=== PATIENT | female | born 1940 | race Caucasian/White ===

== ENCOUNTER → 2016-09-13 | Outpatient (CLI) | payer MEDICARE, OTHER ==
[2016-01-12 14:36] VITALS: BP 118/70
[~2016-09-13] MED LIST: ACET500T33 PO; ALBU0.63 NEB; ALPH600C3 PO; ATEN25TA PO; CHOL4000 PO; GUAI600T47 PO; HYDR2TAB31 PO; LEVO25TA4 PO; LEVO75TA5 PO; MAGN400O7 PO; MELO15TA6 PO; OMEP20CA9 PO; ONDA4TAB7 PO; OXYC-323 PO; OXYC1TAB9 PO; PROM25AM6 IM; SIME125C65 PO; TRIA1CAP PO
[2016-09-13 12:40] LABS: BASO # 0.1 x10^3/uL (0.0-0.2); BASO % 1 % (0-3); EOS % 8 % (0-3); HEMATOCRIT 28.9 % (36.0-47.0); HEMOGLOBIN 9.4 g/dL (12.0-15.5); LYMPH # 2.2 x10^3/uL (1.0-4.8); LYMPH % 17 % (24-48); MEAN CORPUSCULAR HEMOGLOBIN 29 pg (25-35); MEAN CORPUSCULAR HGB CONC 33 g/dL (31-37); MEAN CORPUSCULAR VOLUME 89 fL (79-100); MONO # 1.2 x10^3/uL (0.0-1.1); MONO % 10 % (0-9); NEUT # 7.9 x10^3uL (1.8-7.7); NEUT % 64 % (31-73); PLATELET COUNT 604 x10^3/uL (140-400); RED BLOOD COUNT 3.26 x10^6/uL (3.50-5.40); RED CELL DISTRIBUTION WIDTH 13.8 % (11.5-14.5); WHITE BLOOD COUNT 12.4 x10^3/uL (4.0-11.0)
[2016-09-13 12:47] LABS: ALBUMIN 3.1 g/dL (3.4-5.0); ALBUMIN/GLOBULIN RATIO 0.9 (1.0-1.7); CALCIUM 8.9 mg/dL (8.5-10.1); GFR 53.8; POTASSIUM 5.1 mmol/L (3.5-5.1); TOTAL BILIRUBIN 0.2 mg/dL (0.2-1.0); TOTAL PROTEIN 6.5 g/dL (6.4-8.2)
== END | disposition home or self-care (01) ==
LOC: SPEC 12:15
PROVIDERS: ATTEND Internal Medicine
DX: I10 Essential (primary) hypertension (principal); E03.9 Hypothyroidism, unspecified; D51.9 Vitamin B12 deficiency anemia, unspecified; E55.9 Vitamin D deficiency, unspecified
CPT/HCPCS: 36415; 80053; 82306; 82607; 84443; 85027

== ENCOUNTER → 2016-10-20 | Outpatient (CLI) | payer MEDICARE, OTHER ==
[2016-01-12 14:36] VITALS: BP 118/70
[~2016-10-20] MED LIST changes: -ALPH600C3 PO; +ASCO500T3 PO; +ASPI-630 PO; +CYAN10002 IM; +DICL75TA PO; +DOCU-109 PO; +FERR-26 PO; +HYDR-971 PO; +LEXAPRO5 MG PO; +MISO200T PO; +POLY17PO5 PO; +SUCR1TAB35 PO; +[UNRECOGNIZED DRUG - CODE] PO
[2016-10-20 12:31] LABS: ALBUMIN 2.7 g/dL (3.4-5.0); ALBUMIN/GLOBULIN RATIO 0.8 (1.0-1.7); CALCIUM 8.6 mg/dL (8.5-10.1); CREATININE 0.9 mg/dL (0.6-1.0); GFR 60.7; POTASSIUM 3.6 mmol/L (3.5-5.1); TOTAL BILIRUBIN 0.2 mg/dL (0.2-1.0); TOTAL PROTEIN 6.3 g/dL (6.4-8.2)
[2016-10-20 14:34] LABS: BASO # 0.1 x10^3/uL (0.0-0.2); BASO % 1 % (0-3); EOS # 0.6 x10^3/uL (0.0-0.7); EOS % 5 % (0-3); HEMATOCRIT 24.3 % (36.0-47.0); HEMOGLOBIN 7.7 g/dL (12.0-15.5); LYMPH # 2.4 x10^3/uL (1.0-4.8); LYMPH % 20 % (24-48); MEAN CORPUSCULAR HEMOGLOBIN 27 pg (25-35); MEAN CORPUSCULAR HGB CONC 32 g/dL (31-37); MEAN CORPUSCULAR VOLUME 84 fL (79-100); MONO % 9 % (0-9); NEUT # 7.6 x10^3uL (1.8-7.7); NEUT % 65 % (31-73); PLATELET COUNT 659 x10^3/uL (140-400); RED BLOOD COUNT 2.89 x10^6/uL (3.50-5.40); RED CELL DISTRIBUTION WIDTH 14.2 % (11.5-14.5); WHITE BLOOD COUNT 11.8 x10^3/uL (4.0-11.0)
== END | disposition home or self-care (01) ==
LOC: LAB 11:43
PROVIDERS: ATTEND Internal Medicine
DX: I10 Essential (primary) hypertension (principal); D51.9 Vitamin B12 deficiency anemia, unspecified
CPT/HCPCS: 36415; 80053; 82607; 82746; 85025

== ENCOUNTER → 2016-10-23 | Outpatient (CLI) | payer MEDICARE, OTHER ==
[2016-01-12 14:36] VITALS: BP 118/70
[~2016-10-23] MED LIST changes: -ASCO500T3 PO; -FERR-26 PO
== END | disposition home or self-care (01) ==
LOC: SPEC 13:58
PROVIDERS: ATTEND Internal Medicine
DX: K29.60 Other gastritis without bleeding (principal)
CPT/HCPCS: 82728; 83540; 83550

== ENCOUNTER 2016-10-24 09:38 | Inpatient (IN) | payer MEDICARE, OTHER ==
[~2016-10-24] VITALS: Ht 170.2 cm; Wt 79.8 kg
[~2016-10-24 09:38] MED LIST changes: -ASPI-630 PO; -CYAN10002 IM; -DICL75TA PO; -DOCU-109 PO; -HYDR-971 PO; -LEXAPRO5 MG PO; -MISO200T PO; -POLY17PO5 PO; -SUCR1TAB35 PO
[2016-10-24 10:59] LABS: HEMATOCRIT 23.6 % (36.0-47.0); HEMOGLOBIN 7.4 g/dL (12.0-15.5); RED BLOOD COUNT 2.83 x10^6/uL (3.50-5.40); RED CELL DISTRIBUTION WIDTH 14.1 % (11.5-14.5); WHITE BLOOD COUNT 10.9 x10^3/uL (4.0-11.0)
--- NOTE | 2016-10-24 11:02 | EKG ---
[address] [address] Test Date: 2016-10-24 Test Time: 10:31:09 Pat Name: MICHELLE RESENDIZ Department: Room: Gender: F Investigative Research Specialist: JUAN A : 1940 Requested By: TAYLOR NOYOLA Order Number: [id number] Reading MD: Kendrick Bolden Measurements Intervals [place] Rate: 67 P: 51 WA: 118 QRS: 49 QRSD: 84 T: -51 QT: 408 QTc: 434 Interpretive Statements SINUS RHYTHM NON-SPECIFIC ST/T CHANGES Electronically Signed On 10-26-2016 11:12:26 CDT by Kendrick Bolden
[2016-10-24 11:04] LABS: CALCIUM 8.7 mg/dL (8.5-10.1); CREATININE 0.8 mg/dL (0.6-1.0); GFR 69.6; POTASSIUM 4.3 mmol/L (3.5-5.1)
--- NOTE | 2016-10-24 12:13 | PHYS DOC ---
Past History Past Medical History: Constipation, CVA, Dementia, Depression, Fibromyalgia, GERD, Hypertension, Hypothyroid, Other Past Surgical History: Appendectomy, Tonsillectomy, Other Alcohol Use: None Drug Use: None Adult General Chief Complaint Chief Complaint: ABNORMAL LABS HPI HPI Patient is a 76 year old F who presents with presyncope and low hemoglobin. She also notes having black stools over the past days to weeks. Her history is limited by mild dementia. She does not have any other associated symptoms at this time. Review of Systems Review of Systems Constitutional: Denies fever or chills [] Eyes: Denies change in visual acuity, redness, or eye pain [] HENT: Denies nasal congestion or sore throat [] Respiratory: Denies cough or shortness of breath [] Cardiovascular: No additional information not addressed in HPI [] GI: Negative except history of present illness : Denies dysuria or hematuria [] Musculoskeletal: Denies back pain or joint pain [] Integument: Denies rash or skin lesions [] Neurologic: Denies headache, focal weakness or sensory changes [] Endocrine: Denies polyuria or polydipsia [] Family History Family History Noncontributory Current Medications Current Medications Medications reviewed Allergies Allergies Allergies Coded Allergies Type Severity Reaction Last Updated Verified Sulfa (Sulfonamide Antibiotics) Allergy Intermediate Nausea 08/25/15 Yes Physical Exam Physical Exam Constitutional: Well developed, well nourished, no acute distress, non-toxic appearance. [] Pale in appearance HENT: Normocephalic, atraumatic, bilateral external ears normal, oropharynx dry, no oral exudates, nose normal. [] Eyes: PERRLA, EOMI, conjunctiva normal, no discharge. [] Neck: Normal range of motion, no tenderness, supple, no stridor. [] Cardiovascular:Heart rate regular rhythm, no murmur [] Lungs & Thorax: Bilateral breath sounds clear to auscultation [] Abdomen: Bowel sounds normal, soft, no tenderness, no masses, no pulsatile masses. [] Skin: Warm, dry, no erythema, no rash. [] Back: No tenderness, no CVA tenderness. [] Extremities: No tenderness, no cyanosis, no clubbing, ROM intact, no edema. [] Neurologic: Alert, normal motor function, normal sensory function, no focal deficits noted. [] Psychologic: Affect normal, judgement normal, mood normal. [] Current Patient Data Vital Signs Vital Signs Date Time Temp Pulse Resp B/P (MAP) Pulse Ox O2 Delivery O2 Flow Rate FiO2 10/24/16 09:40 98.4 55 18 99 Room Air Lab Results Laboratory Tests Test 10/24/16 10:45 White Blood Count 10.9 x10^3/uL (4.0-11.0) Red Blood Count 2.83 x10^6/uL (3.50-5.40) L Hemoglobin 7.4 g/dL (12.0-15.5) L Hematocrit 23.6 % (36.0-47.0) L Mean Corpuscular Volume 83 fL (79-100) Mean Corpuscular Hemoglobin 26 pg (25-35) Mean Corpuscular Hemoglobin Concent 32 g/dL (31-37) Red Cell Distribution Width 14.1 % (11.5-14.5) Platelet Count 595 x10^3/uL (140-400) H Sodium Level 133 mmol/L (136-145) L Potassium Level 4.3 mmol/L (3.5-5.1) Chloride Level 100 mmol/L (98-107) Carbon Dioxide Level 27 mmol/L (21-32) Anion Gap 6 (6-14) Blood Urea Nitrogen 18 mg/dL (7-20) Creatinine 0.8 mg/dL (0.6-1.0) Estimated GFR (Cockcroft-Gault) 69.6 Glucose Level 107 mg/dL (70-99) H Calcium Level 8.7 mg/dL (8.5-10.1) EKG EKG Normal sinus rhythm Course & Med Decision Making Course & Med Decision Making Pertinent Labs and Imaging studies reviewed. (See chart for details) Dr. Lau, her primary care physician, was contacted by phone. Given her reported active lower GI bleed and hemoglobin trending downwards she was admitted for further management Dragon Disclaimer Dragon Disclaimer This chart was dictated in whole or in part using Voice Recognition software in a busy, high-work load, and often noisy Emergency Department environment. It may contain unintended and wholly unrecognized errors or omissions. Departure Departure: Impression: Primary Impression: Lower GI bleed Additional Impression: Acute blood loss anemia Disposition: ADMITTED INPATIENT Condition: STABLE Referrals: YOLA LAU MD (PCP) Problem Qualifiers TAYLOR NOYOLA MD Oct 24, 2016 12:13
[2016-10-24] MEDS: IV NORMAL SALINE 1,000ML 1,000 ML IV SCH ×2 (13:57→17:49)
[2016-10-24 14:18] VITALS: BP 136/58
[2016-10-24 14:30] VITALS: BP 136/58
[2016-10-24] MEDS ORDERED: MAGNESIUM HYDROXIDE 2,400 MG/30 ML ORAL.SUSP. PO PRN (15:00)
[2016-10-24] MEDS ORDERED: SIMETHICONE 80 MG TAB.CHEW PO PRN (15:00)
[2016-10-24] MEDS ORDERED: ACETAMINOPHEN 500 MG TABLET PO PRN (15:00)
[2016-10-24] MEDS ORDERED: HYDROmorphone 2 MG TABLET PO PRN (15:00)
[2016-10-24] MEDS ORDERED: PROMETHAZINE IM 25 MG/ML VIAL IM PRN (15:00)
[2016-10-24] MEDS ORDERED: ALBUTEROL SULFATE 2.5 MG/3 ML NEBU. NEB PRN (15:00)
[2016-10-24] MEDS ORDERED: ONDANSETRON ODT 4 MG TAB.RAPDIS PO PRN (15:00)
--- NOTE | 2016-10-24 16:16 | HP ---
ADMIT DATE: 10/24/2016 HISTORY OF PRESENT ILLNESS: The patient is a 76-year-old sister who resides at [facility] and who apparently presented to the Emergency Room with presyncope and low hemoglobin. She also noted that she had black stools over the last days to weeks. Her hemoglobin was checked by her primary care physician and was found to be low; and therefore, she was referred to the Emergency Room for further evaluation and treatment. When I asked her, the patient actually denied any nausea, vomiting. Denied any abdominal pain, denied any melena stool. However, she carries a diagnosis of dementia. She reported at least melena stool to the ER physician. PAST MEDICAL HISTORY: Significant for hypertension, hypothyroidism, reflux esophagitis, vitamin D deficiency. She has also chronic nausea, fibromyalgia and history of traumatic brain injury. She was apparently thrown from a horse in high school, but did go on to go to the college. PAST SURGICAL HISTORY: Unremarkable. FAMILY HISTORY: She has 4 sisters and one brother, one sister had of myocardial infarction. Both parents in their 80s of heart disease. 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 She lives at [facility]. She does not smoke, drink alcohol or use any recreational drugs. ALLERGIES: She is allergic to SULFA DRUGS. MEDICATIONS: She is currently on following medications: She is on acetaminophen 1000 mg every 8 hours, albuterol sulfate by nebulizer q.i.d. She is on fbsen-m-yijwyrmvmnkio 600 units capsule 150 units t.i.d. with meals, atenolol 25 mg daily, cholecalciferol 4000 international units once a day, Mucinex 600 mg twice a day, hydromorphone 2 mg every 6 hours, levothyroxine sodium 75 mcg once a day, magnesium hydroxide or Milk of Magnesia 30 mL p.o. daily p.r.n. for constipation, Mobic 15 mg daily, omeprazole 40 mg daily, ondansetron 4 mg every 6 hours for nausea and vomiting, promethazine 25 mg/mL intramuscularly every 6 hours, simethicone 125 mg daily, triamterene/hydrochlorothiazide 37.5/25 mg one tablet once a day. REVIEW OF SYSTEMS: As per history of present illness. PHYSICAL EXAMINATION GENERAL: When I examined her, she looked well and was clearly in no apparent respiratory distress, was pale, but no jaundice, cyanosis, or thyromegaly. No jugular venous distention. No limb edema. VITAL SIGNS: Her heart rate was 55, blood pressure 134/70, temperature was 98.4, respiratory rate was 18 and oxygen saturation was 99%. HEAD, EYES, EARS, NOSE and THROAT: Showed normocephalic, atraumatic. NECK: Supple. HEART: Showed normal first and second heart sounds with no gallop, rub or murmur. CHEST: Clear to auscultation. No crepitation or rhonchi. ABDOMEN: Distended, soft, nontender. No guarding or rigidity. No organomegaly. Hernial orifices intact. Bowel sounds normal. NEUROLOGIC: She is awake, alert, responding appropriately. Her cranial nerves intact. EXTREMITIES: She moves extremities without difficulty. She ambulates with a walker. LABORATORY DATA: Showed a white cell count 10,900, hemoglobin 7.4, hematocrit 23.6, MCV 83, and platelet count 595,000. Serum sodium 133, potassium 4.3, chloride 100, bicarbonate 27, anion gap of 6, BUN 18, creatinine 0.8, estimated GFR was 70 mL per minute. Her glucose was 107, calcium was 8.7. ASSESSMENT AND PLAN: This is a 76-year-old female patient who was admitted with anemia with low hemoglobin that has been trending down. She also reported having black stools over the past days to weeks. She is also on Meloxicam which obviously can cause gastric irritation and gastric ulcer. My plan is to discontinue the meloxicam. We will start her on Protonix 40 mg twice a day. Continue with IV fluid. We will check her stool for occult blood and check her H and H for every 6 hours. We will transfuse if the hemoglobin drops below 7. She will be started on a clear liquid diet and we will decide on further management accordingly. PERRY BECKER MD DR: AUDRA/jessie JOB#: [id number] / [id number]
[2016-10-24] MEDS ORDERED: ASPI-630 PO (16:34)
[2016-10-24] MEDS ORDERED: LEXAPRO5 MG PO (16:34)
[2016-10-24] MEDS ORDERED: SUCR1TAB35 PO (16:34)
[2016-10-24] MEDS ORDERED: DOCU-109 PO (16:34)
[2016-10-24] MEDS ORDERED: POLY17PO5 PO (16:34)
[2016-10-24] MEDS ORDERED: CYAN10002 IM (16:34)
[2016-10-24] MEDS ORDERED: MISO200T PO (16:34)
[2016-10-24] MEDS ORDERED: HYDR-971 PO (16:34)
[2016-10-24] MEDS ORDERED: DICL75TA PO (16:34)
[2016-10-24 18:12] VITALS: BP 163/52
[2016-10-24] MEDS: PANTOPRAZOLE 40 MG TABLET. PO SCH ×2 (19:57→21:07)
[2016-10-25] VITALS (8 sets, daily range): BP systolic 115–149; BP diastolic 47–88
[2016-10-25] MEDS ORDERED: IV NORMAL SALINE 250ML 250 ML ONE (02:29)
[2016-10-25] MEDS: LEVOTHYROXINE 75 MCG TABLET PO SCH (05:52)
[2016-10-25 07:15] LABS: BASO # 0.1 x10^3/uL (0.0-0.2); BASO % 1 % (0-3); EOS # 0.5 x10^3/uL (0.0-0.7); EOS % 6 % (0-3); HEMOGLOBIN 8.7 g/dL (12.0-15.5); LYMPH # 1.7 x10^3/uL (1.0-4.8); LYMPH % 22 % (24-48); MEAN CORPUSCULAR HEMOGLOBIN 27 pg (25-35); MEAN CORPUSCULAR HGB CONC 33 g/dL (31-37); MEAN CORPUSCULAR VOLUME 81 fL (79-100); MONO # 0.8 x10^3/uL (0.0-1.1); MONO % 10 % (0-9); NEUT # 4.8 x10^3uL (1.8-7.7); NEUT % 61 % (31-73); PLATELET COUNT 541 x10^3/uL (140-400); RED BLOOD COUNT 3.22 x10^6/uL (3.50-5.40); RED CELL DISTRIBUTION WIDTH 14.4 % (11.5-14.5); WHITE BLOOD COUNT 7.9 x10^3/uL (4.0-11.0)
[2016-10-25 07:18] LABS: ALBUMIN 2.5 g/dL (3.4-5.0); ALBUMIN/GLOBULIN RATIO 0.8 (1.0-1.7); CALCIUM 8.7 mg/dL (8.5-10.1); CREATININE 0.7 mg/dL (0.6-1.0); GFR 81.1; TOTAL BILIRUBIN 0.2 mg/dL (0.2-1.0); TOTAL PROTEIN 5.8 g/dL (6.4-8.2)
[2016-10-25] MEDS ORDERED: PANTOPRAZOLE 20 MG TABLET. PO SCH (07:30)
[2016-10-25] MEDS: TRIAMTERENE/HCTZ 37.5/25MG TABLET. PO SCH (08:30)
[2016-10-25] MEDS: PANTOPRAZOLE 40 MG TABLET. PO SCH ×2 (08:30→19:47)
[2016-10-25] MEDS: CHOLECALCIFEROL (VITAMIN D3) 1,000 UNIT TABLET PO SCH (08:31)
[2016-10-25] MEDS: ATENOLOL 25 MG TABLET PO SCH (08:31)
[2016-10-25] MEDS ORDERED: hydroCHLOROthiazide 25 MG TABLET PO SCH (09:00)
[2016-10-25] MEDS ORDERED: PANTOPRAZOLE 40 MG TABLET. PO SCH (09:00)
[2016-10-25] MEDS ORDERED: ALPRAZolam 0.25 MG TABLET PO PRN (15:30)
--- NOTE | 2016-10-26 03:01 | PN ---
DATE: 10/25/2016 SUBJECTIVE: The patient is sitting comfortably in her chair in no apparent distress. On questioning her, denied any complaint, in particular denied any nausea, vomiting. Denied any abdominal pain, denied any dizziness, lightheadedness that she dropped her hemoglobin down to 7 and did receive 1 unit of packed RBCs and her most recent H and H was 8.7 and 26. She has not had any bowel movement so far, we have not been able to check her stool for occult blood. PHYSICAL EXAMINATION: GENERAL: When I examined her this afternoon, she was pale, not jaundiced, cyanosis, or thyromegaly. No jugular venous distention. No limb edema. VITAL SIGNS: Her heart rate was 64, blood pressure was 115/53, temperature was 98.6, respiratory rate 20, and oxygen saturation was 97%. HEAD, EYES, EARS, NOSE AND THROAT: Showed normocephalic, atraumatic. NECK: Supple. HEART: Showed normal first and second heart sounds with no gallop, rub or murmur. CHEST: Clear to auscultation. No crepitation or rhonchi. ABDOMEN: Distended, soft, nontender. No guarding or rigidity. No organomegaly. Hernial orifices intact. Bowel sounds normal. NEUROLOGIC: She is demented; however, all her cranial nerves are intact. She moves extremities without difficulty. Her intake over the last 24 hours was 1200, no output was recorded. LABORATORY DATA: Her lab work this morning showed a white cell count 7900, hemoglobin 8.7, hematocrit 26, MCV 81, platelet count 541,000. Her chemistry showed a serum sodium 137, potassium 4, chloride 104, bicarbonate 26, anion gap of 7, BUN 8, creatinine 0.7, estimated GFR was 81 mL per minute. Her glucose was 96, calcium was 8.7. Total bilirubin, AST, ALT, alkaline phosphatase were normal. Total protein was 5.8, albumin 2.5. ASSESSMENT: Anemia with hemoglobin that has been trending down. The patient reported black stools over the past days to weeks, making it likely due to gastrointestinal bleed. PLAN: My plan is to continue with Protonix 40 mg twice a day. Continue to monitor her H and H and advance her diet. Also, continue to check her stool for occult blood. Her H and H has stabilized. She can be discharged back to be followed by her primary care physician tomorrow. PERRY BECKER MD DR: AUDRA/jessie JOB#: [id number] / [id number]
[2016-10-26 04:48] VITALS: BP 161/60
[2016-10-26] MEDS: LEVOTHYROXINE 75 MCG TABLET PO SCH (04:57)
[2016-10-26] MEDS: TRIAMTERENE/HCTZ 37.5/25MG TABLET. PO SCH (07:45)
[2016-10-26] MEDS: CHOLECALCIFEROL (VITAMIN D3) 1,000 UNIT TABLET PO SCH (07:45)
[2016-10-26] MEDS: PANTOPRAZOLE 40 MG TABLET. PO SCH (07:45)
[2016-10-26] MEDS: ATENOLOL 25 MG TABLET PO SCH (07:46)
[2016-10-26 10:13] VITALS: BP 128/57
[2016-10-26 10:40] LABS: BASO # 0.1 x10^3/uL (0.0-0.2); BASO % 1 % (0-3); EOS # 0.5 x10^3/uL (0.0-0.7); EOS % 7 % (0-3); HEMATOCRIT 30.5 % (36.0-47.0); HEMOGLOBIN 9.8 g/dL (12.0-15.5); LYMPH # 1.6 x10^3/uL (1.0-4.8); LYMPH % 22 % (24-48); MEAN CORPUSCULAR HEMOGLOBIN 27 pg (25-35); MEAN CORPUSCULAR HGB CONC 32 g/dL (31-37); MEAN CORPUSCULAR VOLUME 84 fL (79-100); MONO # 0.7 x10^3/uL (0.0-1.1); MONO % 9 % (0-9); NEUT # 4.6 x10^3uL (1.8-7.7); NEUT % 62 % (31-73); PLATELET COUNT 504 x10^3/uL (140-400); RED BLOOD COUNT 3.66 x10^6/uL (3.50-5.40); RED CELL DISTRIBUTION WIDTH 14.7 % (11.5-14.5); WHITE BLOOD COUNT 7.5 x10^3/uL (4.0-11.0)
[2016-10-26 10:49] LABS: ALBUMIN 2.6 g/dL (3.4-5.0); ALBUMIN/GLOBULIN RATIO 0.6 (1.0-1.7); CALCIUM 8.9 mg/dL (8.5-10.1); CREATININE 0.8 mg/dL (0.6-1.0); GFR 69.6; TOTAL BILIRUBIN 0.2 mg/dL (0.2-1.0); TOTAL PROTEIN 6.8 g/dL (6.4-8.2)
[2016-10-26 10:55] LABS: POTASSIUM 4.1 mmol/L (3.5-5.1)
[2016-10-26] MEDS ORDERED: ASCO500T3 PO (12:27)
[2016-10-26] MEDS ORDERED: FERR-26 PO (12:27)
--- NOTE | 2016-10-26 21:13 | DS ---
DATE OF DISCHARGE: 10/26/2016 HISTORY OF PRESENT ILLNESS: The patient is a 76-year-old female patient, a resident at [facility], who was admitted with anemia with hemoglobin that is trending down. She denied any history of nausea or vomiting. No hematemesis, melena, or hematochezia. Initially, her lab work showed that her hemoglobin has dropped down to 7. She did receive 1 unit of packed RBCs and her H and H has remained stable. She has no documented bleeding from anywhere. No hematemesis. No melena or hematochezia. She remained hemodynamically stable and her lab work showed that her vitamin B12 and serum RBC folate were within normal range and a decision was made to discharge her back to [facility] to continue on ferrous sulfate and ascorbic acid. PHYSICAL EXAMINATION: GENERAL: When I saw her today, she was sitting comfortably in her chair, eating her lunch comfortably, in no apparent distress. She denied any complaint. When I examined her, she was pale, but no jaundice, cyanosis or thyromegaly. No jugular venous distension. No limb edema. VITAL SIGNS: Her heart rate was 60, blood pressure 128/57, temperature was 97.7, respiratory rate 20, and oxygen saturation was 98%. HEAD, EYES, EARS, NOSE AND THROAT: Showed normocephalic, atraumatic. NECK: Supple. HEART: Showed normal first and second heart sounds with no gallop, rub, or murmur. CHEST: Clear to auscultation. No crepitation or rhonchi. ABDOMEN: Distended, soft, nontender. NEUROLOGIC: She is demented without any obvious lateralizing sign. All her cranial nerves are intact. She moves extremities without difficulty. Her intake was 1700, no output was recorded. LABORATORY DATA: Her lab work this morning showed a serum sodium of 138, potassium 4.1, chloride 103, bicarbonate 25, anion gap of 10, BUN 8, creatinine 0.8. Estimated GFR was 69 mL per minute. Her glucose was 122, calcium was 8.9. Serum iron was 21, TIBC was 281 and iron saturation was 7. Her total bilirubin, AST, ALT, alkaline phosphatase were normal. Total protein was 6.8, albumin 2.6. Vitamin B12 was 112 picogram per mL and serum folate was at 26 nanogram per mL. Her TSH was slightly elevated at 5.77 DISCHARGE MEDICATIONS: She was discharged on following medications: Ascorbic acid 500 mg twice a day, ferrous sulfate 325 mg twice a day, Tylenol Extra Strength 1000 mg twice a day as needed, albuterol sulfate 0.63 mg in 3 mL via nebulizer twice to 4 times a day, aspirin 81 mg once a day, atenolol 25 mg once a day, vitamin D3 4000 units p.o. daily, cyanocobalamin 1000 mcg per mL intramuscular every month, diclofenac sodium will be discontinued, docusate sodium 100 mg 2 capsules once a day, citalopram oxalate for Lexapro 5 mg daily, Mucinex 600 mg b.i.d., hydrocodone/APAP 5/325 one tablet every 4-6 hours, levothyroxine sodium 75 mcg once a day, milk of magnesia 30 mL p.o. daily p.r.n. for constipation, misoprostol 200 mcg twice a day, omeprazole 40 mg twice a day, ondansetron for Zofran 4 mg every 6 hours, polyethylene glycol 17 grams daily, simethicone 125 mg daily, sucralfate 1 gram b.i.d., triamterene/hydrochlorothiazide 1 tablet once a day. FINAL DISCHARGE DIAGNOSES: Acute blood loss anemia. She did receive 1 unit of packed RBCs. She is on diclofenac 75 mg twice a day and reported black stool, and therefore, the Voltaren was discontinued. Other medical problems include hypertension, hypothyroidism, gastroesophageal reflux disease, vitamin D deficiency, and traumatic brain injury. PERRY BECKER MD DR: AUDRA/jessie JOB#: [id number] / [id number]
--- NOTE | 2016-10-27 00:57 | ACF ---
Admission Criteria Forms GASTROINTESTINAL BLEEDING Clinical Indications for Inpatient Care (Place 'X' for any and all applicable criteria): Ongoing inpatient care may be indicated for gastrointestinal bleeding with ANY ONE of the following (4)(20)(21)(22)(23)(24): [ ]I. Active bleeding (eg, fresh voluminous blood in emesis or nasogastric aspirate, or per rectum) [ X]II. Hemodynamic instability [ ]III. Anticoagulation therapy or coagulopathy ((eg, advanced liver disease, irreversible anticoagulation) [ ]IV. Ischemic colitis (22) [ ]V. Endoscopy showing arterial bleeding, adherent clot, nonbleeding visible vessel, varices, flat red spots, ulcer size greater than 2 cm, or portal hypertensive gastropathy [ ]. High-risk low platelet count [ ]VII. Anemia requiring inpatient care as indicated by ANY ONE of the following a)[ ] Cognitive impairment b)[ ] Syncope c)[ ] Heart failure d)[ ] Chest pain e)[ ] Dyspnea f)[ ] Other findings suggesting inadequate perfusion (eg, peripheral or myocardial ischemia, end organ dysfunction) [ ]VIII. High-risk low platelet count [ ]IX. Suspected variceal cause of bleeding as indicated by ANY ONE of the following(27)(28): a)[ ] Known varices b)[ ] Hepatomegaly or splenomegaly c)[ ] Ascites d)[ ] Jaundice or scleral icterus e)[ ] History of liver disease (eg, cirrhosis) f)[ ] Physical findings of portal hypertension (eg, caput medusa) g)[ ] Comorbid disorder indicating risk for portal vein thrombosis (eg , abdominal surgery, sepsis, shock, exchange transfusion, prior umbilical vein catheterization) Extended stay may be needed until ALL of the following are present(20)(38)(47): [ ]a) Hemodynamic stability [ ]b) No evidence of active bleeding (eg, stable Hematocrit) [ ]c) Platelet count, prothrombin time, and partial thromboplastin time acceptable for next level of care [ ]d) Surgical or other acute intervention not needed [ ]e) Oral hydration and diet tolerated The original [employer] content created by Cory Estr[employer] has been revised. The portions of the content which have been revised are identified through the use of italic text or in bold, and [employer] has neither reviewed nor approved the modified material. All other unmodified content is copyright [facility]. Please see references footnoted in the original [facility] edition 2016 Admission Criteria Met?: Yes HEATHER FORTE Oct 27, 2016 00:57
== END 2016-10-26 13:35 | disposition home or self-care (01) | DRG 811 ==
LOC: ER 09:38 → ICU 11:18
PROVIDERS: ADMIT Internal Medicine; ATTEND Internal Medicine
PROC: 30233N1 Transfusion of Nonautologous Red Blood Cells into Peripheral Vein, Percutaneous Approach (ICD-10-PCS; principal; 2016-10-25)
DX: D62 Acute posthemorrhagic anemia (principal); E43 Unspecified severe protein-calorie malnutrition; F03.90 Unspecified dementia, unspecified severity, without behavioral disturbance, psychotic disturbance, mood disturbance, and anxiety; K92.2 Gastrointestinal hemorrhage, unspecified; D64.9 Anemia, unspecified; I10 Essential (primary) hypertension; E03.9 Hypothyroidism, unspecified; K21.0 Gastro-esophageal reflux disease with esophagitis; E55.9 Vitamin D deficiency, unspecified; M79.7 Fibromyalgia; F32.9 Major depressive disorder, single episode, unspecified; Z87.820 Personal history of traumatic brain injury; Z82.49 Family history of ischemic heart disease and other diseases of the circulatory system
CPT/HCPCS: 36415; 80048; 80053; 82607; 82728; 82746; 83540; 83550; 84443; 85018; 85025; 85027; 86850; 86900; 86901; 86920; 87641; 93005; J7050; P9016; 97110; 97116; 97530; J7030

== ENCOUNTER → 2016-11-24 | Outpatient (CLI) | payer MEDICARE, OTHER ==
[2016-10-26 10:13] VITALS: BP 128/57
[~2016-11-24] MED LIST changes: +ASCO500T3 PO; +ASPI-630 PO; +CYAN10002 IM; +DICL75TA PO; +DOCU-109 PO; +FERR-26 PO; +HYDR-971 PO; +LEXAPRO5 MG PO; +MISO200T PO; +POLY17PO5 PO; +SUCR1TAB35 PO
[2016-11-24 10:41] LABS: BASO # 0.1 x10^3/uL (0.0-0.2); BASO % 1 % (0-3); EOS # 0.4 x10^3/uL (0.0-0.7); EOS % 5 % (0-3); HEMATOCRIT 32.8 % (36.0-47.0); LYMPH # 2.1 x10^3/uL (1.0-4.8); LYMPH % 26 % (24-48); MEAN CORPUSCULAR HEMOGLOBIN 29 pg (25-35); MEAN CORPUSCULAR HGB CONC 34 g/dL (31-37); MEAN CORPUSCULAR VOLUME 88 fL (79-100); MONO # 0.6 x10^3/uL (0.0-1.1); MONO % 8 % (0-9); NEUT # 4.8 x10^3uL (1.8-7.7); NEUT % 60 % (31-73); PLATELET COUNT 315 x10^3/uL (140-400); RED BLOOD COUNT 3.74 x10^6/uL (3.50-5.40); RED CELL DISTRIBUTION WIDTH 21.2 % (11.5-14.5)
[2016-11-24 13:12] LABS: ANISOCYTOSIS MOD; PLT ESTIMATE ADEQUATE (ADEQUATE); SCHISTOCYTES OCC; SPHEROCYTES OCC
== END | disposition home or self-care (01) ==
LOC: SPEC 10:11
PROVIDERS: ATTEND Internal Medicine
DX: K29.60 Other gastritis without bleeding (principal)
CPT/HCPCS: 36415; 85025

== ENCOUNTER → 2017-03-16 | Outpatient (CLI) | payer MEDICARE, OTHER ==
[2017-03-16 09:16] LABS: BASO # 0.1 x10^3/uL (0.0-0.2); BASO % 1 % (0-3); EOS # 0.1 x10^3/uL (0.0-0.7); EOS % 1 % (0-3); HEMATOCRIT 40.8 % (36.0-47.0); HEMOGLOBIN 13.5 g/dL (12.0-15.5); LYMPH # 2.6 x10^3/uL (1.0-4.8); LYMPH % 25 % (24-48); MEAN CORPUSCULAR HEMOGLOBIN 31 pg (25-35); MEAN CORPUSCULAR HGB CONC 33 g/dL (31-37); MEAN CORPUSCULAR VOLUME 94 fL (79-100); MONO # 0.9 x10^3/uL (0.0-1.1); MONO % 8 % (0-9); NEUT # 7.1 x10^3uL (1.8-7.7); NEUT % 66 % (31-73); PLATELET COUNT 446 x10^3/uL (140-400); RED BLOOD COUNT 4.34 x10^6/uL (3.50-5.40); RED CELL DISTRIBUTION WIDTH 14.9 % (11.5-14.5); WHITE BLOOD COUNT 10.7 x10^3/uL (4.0-11.0)
[2017-03-16 09:19] LABS: ALBUMIN 3.5 g/dL (3.4-5.0); CALCIUM 9.4 mg/dL (8.5-10.1); CREATININE 1.1 mg/dL (0.6-1.0); GFR 48.2; POTASSIUM 3.7 mmol/L (3.5-5.1); TOTAL BILIRUBIN 0.3 mg/dL (0.2-1.0)
== END | disposition home or self-care (01) ==
LOC: LAB 08:25
PROVIDERS: ATTEND Internal Medicine
DX: E03.9 Hypothyroidism, unspecified (principal); I10 Essential (primary) hypertension; D51.9 Vitamin B12 deficiency anemia, unspecified; E55.9 Vitamin D deficiency, unspecified
CPT/HCPCS: 36415; 80053; 82306; 82607; 84443; 85025

== ENCOUNTER 2020-10-18 18:37 | Emergency (ER) | payer MEDICARE, OTHER ==
[~2020-10-18] VITALS: Ht 322.6 cm; Wt 83.0 kg
[~2020-10-18 18:37] MED LIST changes: -ATEN25TA PO; +ATEN25TA42 PO; -CHOL4000 PO; +CHOL40003 PO; -FERR-26 PO; +FERR325T14 PO; +HYDR-3165 PO; -HYDR-971 PO; +OMEP20CA16 PO; -OMEP20CA9 PO; -OXYC-323 PO; +OXYC1TAB15 PO; +OXYC1TAB20 PO; -OXYC1TAB9 PO
--- NOTE | 2020-10-18 19:24 | RAD ---
CT Head W/O Contrast: History: Reason: fall / Spl. Instructions: / History: Comparison: January 12, 2016 Axial images were obtained without contrast. There is moderate diffuse atrophy. Ventriculomegaly was seen previously and is felt to be secondary t o atrophy. There is a mala hole over the right parietal lobe and there is encephalomalacia in the rig ht parietal lobe as well as lateral right cerebellar lobe. The small cerebellar vermis was seen previ ously is likely a normal variant. There is no mass effect, extraaxial fluid collections or gross bleed. Mild, patchy periventricular a nd subcortical white matter hypoattenuation is seen. There is no focal loss of rogers-white matter dis tinction to suggest acute ischemia, i.e. stroke. Impression: 1. Atrophy ventriculomegaly and encephalomalacia the right cerebellar lobe and right parietal lobe. 2. No acute findings. End impression PQRS Compliance Statement: One or more of the following individualized dose reduction techniques were utilized for this examinat ion: 1. Automated exposure control 2. Adjustment of the mA and/or kV according to patient size 3. Use of iterative reconstruction technique Electronically signed by: Higinio Juares III, MD (10/18/2020 7:22 PM) [facility]
--- NOTE | 2020-10-18 19:27 | PHYS DOC ---
Past History Past Medical History: Constipation, CVA, Dementia, Depression, Fibromyalgia, GERD, Hypertension, Hypothyroid, Other Additional Past Medical Histor: TBI Past Surgical History: Appendectomy, Tonsillectomy, Other Alcohol Use: None Drug Use: None General Adult EDM: Chief Complaint: MECHANICAL FALL HPI: HPI: 80-year-old female presents from her care facility after fall. The patient does not remember what happened. She was using her lift chair and kept pushing the button and it leaned all the way up and down to her onto the floor. At baseline, the patient is in a wheelchair and does not ambulate. She was complaining of her right hip hurting at the care facility. She also appears to have a mild abrasion of the forehead. Patient does not have any complaints at this time but she has dementia at baseline. Review of Systems: Review of Systems: Constitutional: Denies fever or chills Eyes: Denies change in visual acuity HENT: Denies nasal congestion or sore throat Respiratory: Denies cough or shortness of breath Cardiovascular: Denies chest pain or edema GI: Denies abdominal pain, nausea, vomiting, bloody stools or diarrhea : Denies dysuria Musculoskeletal: Denies back pain or joint pain Integument: Abrasion forehead Neurologic: Denies headache, focal weakness or sensory changes Endocrine: Denies polyuria or polydipsia Lymphatic: Denies swollen glands Psychiatric: Denies depression or anxiety Allergies: Allergies: Allergies Coded Allergies Type Severity Reaction Last Updated Verified Sulfa (Sulfonamide Antibiotics) Allergy Intermediate Nausea 10/18/20 Yes Physical Exam: PE: Constitutional: Well developed, well nourished, obese, no acute distress, non- toxic appearance. [] HENT: Normocephalic, bilateral external ears normal, oropharynx moist, no oral exudates, nose normal. [] Eyes: PERRLA, EOMI, conjunctiva normal, no discharge. [] Neck: Normal range of motion, no tenderness, supple, no stridor. [] Cardiovascular: Heart rate regular rhythm, no murmur [] Lungs & Thorax: Bilateral breath sounds clear to auscultation [] Abdomen: Bowel sounds normal, soft, no tenderness, no masses, no pulsatile masses. [] Skin: Warm, dry, no erythema, no rash. [] Back: No tenderness, no CVA tenderness. [] Extremities: No tenderness, no cyanosis, no clubbing, ROM intact, no edema. [] Neurologic: Alert and oriented X 3, poor memory. [] Psychologic: Affect normal, judgement normal, mood normal. [] Current Patient Data: Vital Signs: Vital Signs Date Time Temp Pulse Resp B/P (MAP) Pulse Ox O2 Delivery O2 Flow Rate FiO2 10/18/20 18:40 96.7 67 18 128/57 100 Room Air EKG: EKG: Sinus rhythm, rate 65, normal axis, no ST elevation or depression. [] Radiology/Procedures: Radiology/Procedures: [] Impressions: CT Head W/O Contrast: History: Reason: fall / Spl. Instructions: / History: Comparison: January 12, 2016 Axial images were obtained without contrast. There is moderate diffuse atrophy. Ventriculomegaly was seen previously and is felt to be secondary to atrophy. There is a mala hole over the right parietal lobe and there is encephalomalacia in the right parietal lobe as well as lateral right cerebellar lobe. The small cerebellar vermis was seen previously is likely a normal variant. There is no mass effect, extraaxial fluid collections or gross bleed. Mild, patchy periventricular and subcortical white matter hypoattenuation is seen. There is no focal loss of rogers-white matter distinction to suggest acute ischemia, i.e. stroke. Impression: 1. Atrophy ventriculomegaly and encephalomalacia the right cerebellar lobe and right parietal lobe. 2. No acute findings. End impression PQRS Compliance Statement: One or more of the following individualized dose reduction techniques were utilized for this examination: 1. Automated exposure control 2. Adjustment of the mA and/or kV according to patient size 3. Use of iterative reconstruction technique Electronically signed by: Quita Farooq III, MD (10/18/2020 7:22 PM) [facility] DICTATED AND SIGNED BY: QUITA FAROOQ III, MD DATE: 10/18/201917 CC: RIVERA VALDIVIA DO; YOLA BALTAZAR MD ~MTH0 0 XR BILATERAL HIP (WITH OR WITHOUT PELVIS) 2 VIEWS_RIGHT History: Reason: fall / Spl. Instructions: / History: . Pain Technique: AP view the pelvis and 2 additional views of the right hip. Comparison: None. Findings: Degraded evaluation due to patient body habitus. No dislocation. No acute fracture. Rotated left hip degrading evaluation AP view the pelvis. Bowel-containing hernia projecting over the left inferior pelvis. Impression: 1. No definite acute osseous abnormality although evaluation is degraded. 2. Bowel containing hernia projecting over the left inferior pelvis. Electronically signed by: Amando Brooks DO (10/18/2020 7:53 PM) [facility] AND SIGNED BY: AMANDO BROOKS DO DATE: 10/18/201950 CC: RIVERA VALDIVIA DO; YOLA BALTAZAR MD ~MTH0 0 XR CHEST 1V History: Reason: fall / Spl. Instructions: / History: . Pain Comparison: January 12, 2016 Findings: No consolidation or pleural effusion. Normal heart size. No pneumothorax. Impression: 1. No acute cardiopulmonary process. Electronically signed by: Amando Brooks DO (10/18/2020 7:35 PM) [facility] DI[facility]ATED AND SIGNED BY: AMANDO BROOKS DO DATE: 10/18/201933 CC: RIVERA VALDIVIA DO; YOLA BALTAZAR MD ~MTH0 0 Heart Score: C/O Chest Pain: N/A Risk Factors: Risk Factors: DM, Current or recent (<one month) smoker, HTN, HLP, family history of CAD, obesity. Risk Scores: Score 0 - 3: 2.5% MACE over next 6 weeks - Discharge Home Score 4 - 6: 20.3% MACE over next 6 weeks - Admit for Clinical Observation Score 7 - 10: 72.7% MACE over next 6 weeks - Early Invasive Strategies Course & Med Decision Making: Course & Med Decision Making Pertinent Labs and Imaging studies reviewed. (See chart for details) The patient's labs are unremarkable. Her head CT is negative for acute findings. Her other imaging is negative for acute findings. Patient is stable for discharge at this time. [] Dragon Disclaimer: Dragon Disclaimer: This electronic medical record was generated, in whole or in part, using a voice recognition dictation system. Departure Departure: Impression: Primary Impression: Fall from chair Qualified Codes: W07.XXXA - Fall from chair, initial encounter Disposition: HOME / SELF CARE / HOMELESS Condition: STABLE Referrals: YOLA BALTAZAR MD (PCP) Patient Instructions: Fall Prevention and Home Safety, [id number] RIVERA VALDIVIA DO Oct 18, 2020 19:27
--- NOTE | 2020-10-18 19:37 | RAD ---
XR CHEST 1V History: Reason: fall / Spl. Instructions: / History: . Pain Comparison: January 12, 2016 Findings: No consolidation or pleural effusion. Normal heart size. No pneumothorax. Impression: 1. No acute cardiopulmonary process. Electronically signed by: Amando Brooks DO (10/18/2020 7:35 PM) [facility]
--- NOTE | 2020-10-18 19:55 | RAD ---
XR BILATERAL HIP (WITH OR WITHOUT PELVIS) 2 VIEWS_RIGHT History: Reason: fall / Spl. Instructions: / History: . Pain Technique: AP view the pelvis and 2 additional views of the right hip. Comparison: None. Findings: Degraded evaluation due to patient body habitus. No dislocation. No acute fracture. Rotated left hip degrading evaluation AP view the pelvis. Bowel-containing hernia projecting over the left inferior pelvis. Impression: 1. No definite acute osseous abnormality although evaluation is degraded. 2. Bowel containing hernia projecting over the left inferior pelvis. Electronically signed by: Amando Brooks DO (10/18/2020 7:53 PM) [facility]
[2020-10-18 20:16] LABS: BASO # 0.1 x10^3/uL (0.0-0.2); BASO % 1 % (0-3); EOS # 0.1 x10^3/uL (0.0-0.7); EOS % 1 % (0-3); HEMATOCRIT 38.4 % (36.0-47.0); HEMOGLOBIN 12.7 g/dL (12.0-15.5); LYMPH % 18 % (24-48); MEAN CORPUSCULAR HEMOGLOBIN 31 pg (25-35); MEAN CORPUSCULAR HGB CONC 33 g/dL (31-37); MEAN CORPUSCULAR VOLUME 94 fL (79-100); MONO # 0.9 x10^3/uL (0.0-1.1); MONO % 8 % (0-9); NEUT # 8.3 x10^3uL (1.8-7.7); NEUT % 73 % (31-73); PLATELET COUNT 360 x10^3/uL (140-400); RED BLOOD COUNT 4.08 x10^6/uL (3.50-5.40); RED CELL DISTRIBUTION WIDTH 14.9 % (11.5-14.5); WHITE BLOOD COUNT 11.4 x10^3/uL (4.0-11.0)
[2020-10-18 20:40] LABS: CALCIUM 9.2 mg/dL (8.5-10.1); CREATININE 0.8 mg/dL (0.6-1.0); GFR 68.8; POTASSIUM 4.9 mmol/L (3.5-5.1)
[2020-10-18 20:45] LABS: ALBUMIN 3.6 g/dL (3.4-5.0); ALBUMIN/GLOBULIN RATIO 1.2 (1.0-1.7); TOTAL BILIRUBIN 0.2 mg/dL (0.2-1.0); TOTAL PROTEIN 6.7 g/dL (6.4-8.2)
--- NOTE | 2020-10-18 20:52 | EKG ---
[address] [address] Test Date: 2020-10-18 Test Time: 19:09:16 Pat Name: MICHELLE RESENDIZ Department: Room: Gender: F Manager Risk: : 1940 Requested By: RIVERA VALDIVIA Order Number: [id number] Reading MD: Measurements Intervals [place] Rate: 65 P: 34 VA: 200 QRS: -1 QRSD: 64 T: 47 QT: 394 QTc: 410 Interpretive Statements SINUS RHYTHM LEFTWARD AXIS OTHERWISE NORMAL ECG RI6.02 No previous ECG available for comparison
[2020-10-18] MEDS ORDERED: MORPHINE SULFATE 2 MG/ML DISP.SYRIN. IV ONE (21:45)
[2020-10-19 00:45] VITALS: BP 150/72
== END 2020-10-19 00:50 | disposition home or self-care (01) ==
LOC: ER 18:37
DX: S00.81XA Abrasion of other part of head, initial encounter (principal); K21.9 Gastro-esophageal reflux disease without esophagitis; I10 Essential (primary) hypertension; Z86.73 Personal history of transient ischemic attack (TIA), and cerebral infarction without residual deficits; W07.XXXA Fall from chair, initial encounter; Y93.89 Activity, other specified; Y92.89 Other specified places as the place of occurrence of the external cause; Y99.8 Other external cause status
CPT/HCPCS: 36415; 70450; 71045; 73502; 80053; 84484; 85025; 93005; 96374; 99285; J2270